=== PATIENT | male | born 1985 | race Caucasian/White ===

== ENCOUNTER → 2018-09-27 | Outpatient (CLI) | payer BC ==
--- NOTE | 2018-09-27 14:31 | PCVCIMAG ---
APPROVED REPORT Study performed: 09/27/2018 13:15:44 EXAM: Comprehensive 2D, Doppler, and color-flow Echocardiogram Patient Location: Echo lab Status: routine BSA: 2.02 HR: 55 bpmBP: 118/80 mmHg Rhythm: Bradycardia Other Information Study Quality: Adequate Indications Bradycardia Palpitations 2D Dimensions IVSd: 8.55 (7-11mm) LVDd: 51.93 mm PWd: 9.43 (7-11mm)Ascending Ao: 30.07 (22-36mm) LVDs: 33.58 (25-40mm) Left Atrium: 35.00 (27-40mm) Aortic Root: 30.15 mm LV Single Plane 4CH: 53.78 % LV Single Plane 2CH: 66.30 % Biplane EF: 60.1 % Volumes Left Atrial Volume (Systole) Single Plane 4CH: 38.73 mLSingle Plane 2CH: 67.34 mL LA ESV Index: 27.00 mL/m2 Aortic Valve AoV Peak Bud.: 1.27 m/s AO Peak Gr.: 6.44 mmHgLVOT Max P.17 mmHg LVOT Max V: 1.02 m/s Mitral Valve E/A Ratio: 2.7 MV Decel. Time: 244.44 ms MV E Max Bud.: 0.77 m/s MV A Bud.: 0.29 m/s IVRT: 79.58 ms Pulmonary Valve PV Peak Bud.: 1.01 m/sPV Peak Gr.: 4.06 mmHg Pulmonary Vein P Vein S: 0.38 m/sP Vein A: 0.29 m/s P Vein D: 0.77 m/sP Vein A Dur.: 145.3 msec P Vein S/D Ratio: 0.49 Tricuspid Valve TR Peak Bud.: 2.21 m/s TR Peak Gr.: 19.55 mmHg TV Vmax: 0.58 m/s Left Ventricle The left ventricle is normal size. There is normal LV segmental wall motion. There is normal left ventricular wall thickness. Left ventricular systolic function is normal. The left ventricular ejection fraction is within the normal range. LVEF is 60%. The left ventricular diastolic function is normal. Right Ventricle The right ventricle is normal size. The right ventricular systolic function is normal. Atria The left atrium size is normal. The right atrium size is normal. Aortic Valve The aortic valve is normal in structure. No aortic regurgitation is present. There is no aortic valvular stenosis. Mitral Valve The mitral valve is normal in structure. There is no mitral valve regurgitation noted. No evidence of mitral valve stenosis. Tricuspid Valve The tricuspid valve is normal in structure. Trace tricuspid regurgitation with PAP of 27 mmHg. Pulmonic Valve The pulmonary valve is normal in structure. Trace pulmonic regurgitation. Great Vessels The aortic root is normal in size. IVC is normal in size and collapses >50% with inspiration. Pericardium There is no pericardial effusion. There is no pleural effusion. <Conclusion> The left ventricle is normal size. There is normal left ventricular wall thickness. Left ventricular systolic function is normal. The left ventricular diastolic function is normal. The right ventricle is normal size. The left atrium size is normal. The aortic valve is normal in structure. The mitral valve is normal in structure. Trace tricuspid regurgitation with PAP of 27 mmHg.
--- NOTE | 2018-09-27 14:33 | PCVCIMAG ---
APPROVED REPORT Patient Location: Echo lab Room #: Stress Nurse: Carli Tabor RN Treadmill Stress Test Indications- palpitations, bradycardia The patient exercised according to the EVAN protocol for 13:04 mins; achieving a work level of 17.2 METS. The resting heart rate of 55 bpm marcela to a maximum heart rate of 176 bpm. This value represent 93% of the maximal, age-predicted heart rate. The resting blood pressure of 118/80 mmHg, marcela to a maximum blood pressure of 162/80 mmHg. The exercise test was stopped due to dyspnea and fatigue. Conclusion 1. Clinical response, nonischemic. 2. Stress ECG response, nonischemic. 3. Exercise capacity, superior.
== END | disposition home or self-care (01) ==
LOC: PCVCIMAG 13:24
PROVIDERS: ATTEND Internal Medicine Cardiovascular Disease
DX: R00.2 Palpitations (principal); R00.1 Bradycardia, unspecified
CPT/HCPCS: 93017; 93306